=== PATIENT | female | born 1985 | race Caucasian/White ===

== ENCOUNTER 2020-03-14 15:27 | Outpatient (CLI) | payer BC, SELFPAY ==
--- NOTE | ~2020-03-14 | US_ITS ---
EXAMINATION: US transvaginal DATE: 03/14/2020 15:54 INDICATION: Uterine fibroid Comparison:Ultrasound dated 03/11/2015 TECHNIQUE: Multiple transabdominal and endovaginal sonographic images of the pelvis performed. FINDINGS: The uterus measures 9.8 x 5 x 5.7 cm. There is a uterine fibroid at the fundus which is sli ghtly hypoechoic measuring 1.5 x 1.3 x 1.3 cm. The endometrial complex measures 3 mm. The right ovary measures 3.7 x 3.1 x 4.8 cm and the left ovary measures 2.3 x 1.5 x 2.7 cm. There is a 3.2 cm right ovarian cyst There is no free fluid in the pelvis. There are no abnormal masses seen on either side. IMPRESSION: 1. Right ovarian cyst measuring 3.2 cm maximum dimension. 2: Small uterine fibroid at the fundus measuring 1.5 cm. Reviewed, dictated and finalized at location B.
== END 2020-03-14 15:28 ==
PROVIDERS: Visit Provider Nurse Practitioner
DX: N83.201 Unspecified ovarian cyst, right side (principal); D25.9 Leiomyoma of uterus, unspecified
CPT/HCPCS: 76830

== ENCOUNTER 2020-05-08 15:31 | Outpatient (CLI) | payer BC, SELFPAY ==
--- NOTE | ~2020-05-08 | US_ITS ---
EXAMINATION: US transvaginal DATE: 05/08/2020 16:07 INDICATION: Follow-up right ovarian cysts Comparison:Ovarian cysts follow-up TECHNIQUE: Multiple endovaginal sonographic images of the pelvis performed. FINDINGS: The uterus measures 8.6 x 4.7 x 5.3 cm. No discrete fibroids identified. The endometrial co mplex measures 5 mm. The right ovary measures 3.2 x 2.6 x 2.5 cm and the left ovary measures 3.5 x 1.7 x 1.8 cm. There ar e small follicles in each ovary. There is no free fluid in the pelvis. There are no abnormal masses seen on either side. IMPRESSION: 1. Unremarkable pelvic ultrasound. Reviewed, dictated and finalized at location A. [employer]IPMENT MACHINIST
== END 2020-05-08 15:32 ==
PROVIDERS: Visit Provider Obstetrics & Gynecology Gynecology
DX: N83.201 Unspecified ovarian cyst, right side (principal); D25.9 Leiomyoma of uterus, unspecified
CPT/HCPCS: 76830

== ENCOUNTER 2023-01-06 12:00 | Outpatient (CLI) | payer OTHER, SELFPAY ==
--- NOTE | ~2023-01-06 | XR_ITS ---
EXAMINATION: XR chest 2V DATE: 01/06/2023 12:18 INDICATION: Chest pain TECHNIQUE: PA and lateral views of the chest are obtained. COMPARISON: None available FINDINGS: The lungs are free of acute opacities. No pleural effusion or pneumothorax. The cardiomedia stinal silhouette is normal. There is mild thoracic spondylosis. IMPRESSION: 1. No acute cardiopulmonary abnormality. Reviewed, dictated and finalized at location B.
--- NOTE | 2023-01-06 12:21 | ECG_ITS ---
Measurements Intervals [place] Rate: 70 P: -41 AL: 139 QRS: 89 QRSD: 75 T: 19 QT: 396 QTc: 427 Interpretive Statements SINUS RHYTHM RIGHTWARD AXIS BORDERLINE ECG NO PREVIOUS ECG AVAILABLE FOR COMPARISON Electronically Signed On 01-06-2023 17:06:52 CDT by Richard Odell M.D.
[2023-01-06 14:13] LABS: Hematocrit 38.2 % (37.0-47.0); Mean Corpuscular Hemoglobin 30.1 pg (26-34); Mean Corpuscular Volume 88.4 fl (80-100); Platelet Count Result 203 k/mm3 (150-375); Red Blood Count 4.32 M/mm3 (4.2-5.4); Red Cell Distribution Width 11.2 % (11.5-14.5); White Blood Count 4.4 K/mm3 (4.5-10.0)
[2023-01-06 14:19] LABS: Alanine Aminotransferase 22 U/L (6-35); Albumin Level 3.9 g/dL (3.5-5.1); Alkaline Phosphatase 74 U/L (38-126); Anion Gap 5 mmol/L (8-16); Aspartate Amino Transferase 25 U/L (14-36); Bilirubin,Total 0.6 mg/dL (0.2-1.3); Blood Urea Nitrogen 16 mg/dL (7-17); Calcium 8.6 mg/dL (8.4-10.2); Carbon Dioxide 27 mmol/L (22-30); Chloride 104 mmol/L (98-107); Cholesterol 157 mg/dL (0-200); Estimated Glomerular Filt Rate > 60; Glucose 85 mg/dL (65-110); HDL Direct 55 mg/dL; Potassium 3.6 mmol/L (3.4-5.0); Sodium 136 mmol/L (137-145); Triglycerides 85 mg/dL (<150)
[2023-01-06 14:30] LABS: LDL Cholesterol Direct 82 mg/dL
[2023-01-06 15:22] LABS: Free T4 Free Thyroxine 1.29 ng/mL (0.78-2.19)
== END 2023-01-06 12:01 | disposition home or self-care (01) ==
PROVIDERS: PCP Family Medicine; Visit Provider Physician Assistant
DX: R07.9 Chest pain, unspecified (principal); R53.83 Other fatigue; Z13.1 Encounter for screening for diabetes mellitus; Z13.220 Encounter for screening for lipoid disorders
CPT/HCPCS: 36415; 71046; 80053; 80061; 84439; 84443; 85027; 93005

== ENCOUNTER 2023-01-23 10:20 | Emergency (ER) | payer OTHER, SELFPAY ==
[2023-01-23] VITALS (14 sets, daily range): BP systolic 114–174; BP diastolic 70–97; PULSE 71–93; RESP 13–20; TEMP 37.1; O2SAT 100
--- NOTE | ~2023-01-23 | XR_ITS ---
EXAMINATION: XR chest 2V DATE: 01/23/2023 10:53 INDICATION: Left-sided chest pain TECHNIQUE: PA and lateral views of the chest are obtained. COMPARISON: 01/06/2023 FINDINGS: The lungs are free of acute opacities. No pleural effusion or pneumothorax. The cardiomedia stinal silhouette is normal. The visualized bones and soft tissues are unremarkable. IMPRESSION: 1. No acute cardiopulmonary abnormality. Reviewed, dictated and finalized at location L.
--- NOTE | 2023-01-23 10:20 | ECG_ITS ---
Measurements Intervals [place] Rate: 80 P: 19 NV: 92 QRS: 79 QRSD: 71 T: 41 QT: 364 QTc: 420 Interpretive Statements SINUS RHYTHM WITH SHORT NV INTERVAL NORMAL ELECTROCARDIOGRAM COMPARED TO ECG 01/06/2023 12:26:09 NO SIGNIFICANT CHANGES Electronically Signed On 01-23-2023 14:32:30 CDT by Richard Odell M.D.
[2023-01-23 10:35] LABS: Basophils Percent Auto 0.9 % (0.2-1.2); Eosinophils Absolute Auto 0.1 K/mm3 (0-0.3); Eosinophils Percent Auto 1.3 % (0-4.4); Hematocrit 40.8 % (37.0-47.0); Hemoglobin 13.8 g/dL (12.0-15.0); Immature Granulocyte Absolute 0.01 K/mm3 (0.00-0.031); Immature Granulocyte Percent A 0.2 % (0-0.5); Lymphocytes Absolute Auto 1.17 K/mm3 (0.9-3.2); Lymphocytes Percent Auto 26.1 % (18.3-44.2); Mean Corpuscular HGB Conc 33.8 g/dl (32-36); Mean Corpuscular Hemoglobin 30.3 pg (26-34); Mean Corpuscular Volume 89.7 fl (80-100); Mean Platelet Volume 9.7 fl (7.4-10.4); Monocytes Absolute Auto 0.4 K/mm3 (0.1-0.6); Monocytes Percent Auto 9.4 % (2.6-8.5); Neutrophils Absolute Auto 2.8 K/mm3 (1.3-6.7); Neutrophils Percent Auto 62.1 % (45.5-73.1); Platelet Count Result 221 k/mm3 (150-375); Red Blood Count 4.55 M/mm3 (4.2-5.4); Red Cell Distribution Width 11.4 % (11.5-14.5); White Blood Count 4.5 K/mm3 (4.5-10.0)
[2023-01-23 10:46] LABS: Prothrombin Time 13.4 Seconds (11.1-14.7)
[2023-01-23 10:47] LABS: Partial Thromboplastin Time 37.7 SECONDS (22.3-36.8)
[2023-01-23 10:53] LABS: Alanine Aminotransferase 19 U/L (6-35); Albumin Level 4.1 g/dL (3.5-5.1); Alkaline Phosphatase 69 U/L (38-126); Anion Gap 5 mmol/L (8-16); Aspartate Amino Transferase 23 U/L (14-36); Bilirubin,Total 0.8 mg/dL (0.2-1.3); Blood Urea Nitrogen 15 mg/dL (7-17); Calcium 8.8 mg/dL (8.4-10.2); Carbon Dioxide 27 mmol/L (22-30); Chloride 105 mmol/L (98-107); Estimated CRCL calculation 64 ml/min; Estimated Glomerular Filt Rate 56; Glucose 91 mg/dL (65-110); Lipase 94 U/L (23-300); Potassium 3.9 mmol/L (3.4-5.0); Sodium 137 mmol/L (137-145)
[2023-01-23 11:04] LABS: Troponin I < 0.012 ng/mL (0.000-0.034)
[2023-01-23] MEDS: ASPIRIN 81 MG CHEWABLE TABLET 324 MG PO (11:56)
--- NOTE | 2023-01-23 12:11 | ED.GENADULT ---
[facility] - General Adult General Chief complaint: Chest Pain Stated complaint: chest pain Time Seen by Provider: 01/23/23 11:52 Source: patient Mode of arrival: ambulatory Limitations: no limitations History of Present Illness HPI narrative: This is a 37-year-old female who presents to the ED with chief complaint of chest pain ongoing for the past 3 months. It is intermittent. She states she explains that this morning while she was getting ready for work. She reports pain is usually in the central chest and will occasionally radiate down the left arm. She states today it radiated into the back and went down the back. She also reports associated hand and feet paresthesias that are since resolved. Patient states that her chest pain is actually much better compared to earlier this morning. Denies fevers, chills, abdominal pain, nausea, vomiting, LOC, diarrhea, urinary symptoms, cough, leg swelling. She is on daily estrogen containing control. Related Data Home Medications Medication Instructions Recorded Confirmed bupropion HCl 300 mg 24 hr tablet, 300 mg PO QAM 01/06/23 extended release escitalopram oxalate 20 mg tablet 20 mg PO DAILY 01/06/23 levonorgestrel-ethinyl estradiol 1 tablet PO DAILY 01/06/23 0.1 mg-20 mcg tablet (Aviane) Allergies Allergy/AdvReac Type Severity Reaction Status Date / Time FREEZING SPRAY FOR INJURIES Allergy Swelling Uncoded 01/06/23 11:23 SPRAY FOR TAPING BY PERSONAL Allergy Swelling Uncoded 01/06/23 11:23 TRAIN Review of Systems Review of Systems: All systems as dictated in [facility] Past Medical History Medical History (Updated 01/23/23 @ 14:16 by Robbie Mckeon PA-C) Anxiety Family History Family History (Updated 01/06/23 @ 11:17 by Marivel Blas MA) Sibling Breast cancer Social History Social History (Updated 01/06/23 @ 11:21 by Marivel Blas MA) Smoking status: Never smoker Alcohol intake: never Substance use: never Lack of Transportation: No Lack of Food: Never True Current Housing: I Have Housing Concerned About Future Housing: No Difficulty Paying Gas/Electric Bills: No Difficulty Paying for Meds: No Currently Unemployed: No Education: Master's Degree or Higher Difficulty w/ Childcare or Family Care: No Living arrangements: with family Occupation/Education: occupation Spiritual care concerns: No Agree to blood products: Yes Exam Narrative: GENERAL: Well-appearing, well-nourished, and in no acute distress. HEAD: Normocephalic, atraumatic. EYES: PERRLA and EOMI. ENT: Nares clear, no rhinorrhea or epistaxis. Mucous membranes moist. Oropharynx without tonsillar hypertrophy exudate or other lesions. NECK: Supple. No adenopathy or masses. CHEST: No respiratory distress. Clear to auscultation. No wheezes rales or rhonchi HEART: Regular rate and rhythm. No murmur heard. Normal peripheral pulses. ABDOMEN: Soft, nontender, nondistended, normal active bowel sounds. MSK: Normal range of motion. No edema. SKIN: Warm, dry, no rash. NEURO: Alert and oriented x3. No focal deficits. Strength and sensation fully intact in the upper and lower extremities. PSYCH: Normal mood and affect. Course Vital Signs Vital signs: Vital Signs Temperature 98.7 F 01/23/23 10:40 Pulse Rate 80 01/23/23 10:40 Respiratory Rate 20 01/23/23 10:40 Blood Pressure 174/97 H 01/23/23 10:40 Pulse Oximetry 100 01/23/23 10:40 Oxygen Delivery Room Air 01/23/23 10:40 Temperature 98.7 F 01/23/23 10:40 Pulse Rate 83 01/23/23 14:53 Respiratory Rate 13 01/23/23 14:53 Blood Pressure 114/70 01/23/23 14:53 Pulse Oximetry 100 01/23/23 14:53 Oxygen Delivery Room Air 01/23/23 11:52 Medical Decision Making MDM Narrative Medical decision making narrative: This is a 37-year-old female who presents to the ED with chief complaint of intermittent chest pain for the past several months.
[2023-01-23 12:29] LABS: D Dimer < 0.27 ug/mL (<0.48)
[2023-01-23 13:58] LABS: Troponin I < 0.012 ng/mL (0.000-0.034)
== END 2023-01-23 14:54 | disposition home or self-care (01) ==
PROVIDERS: Student in an Organized Health Care Education/Training Program; Emergency Provider Physician Assistant; PCP Family Medicine
DX: R07.89 Other chest pain (principal); F41.9 Anxiety disorder, unspecified
CPT/HCPCS: 36415; 71046; 80053; 83690; 84484; 85025; 85380; 85610; 85730; 93005; 99284; A9270

== ENCOUNTER 2023-01-28 08:56 | Outpatient (CLI) | payer OTHER, SELFPAY ==
--- NOTE | 2023-01-28 09:22 | EST_ITS ---
Patient Info Name: Sherly Land Age: 37 years : 1985 Gender: Female Ht: 69 in Wt: 165 lbs BSA: 1.92 m2 HR: 74 bpm BP: 139 / 82 mmHg Heart Rhythm: Sinus Rhythm Exam Date: 01/28/2023 9:31 AM Exam Location: [facility] Patient Status: Outpatient Admit Date: 01/28/2023 Staff Ordering Physician: Jeana Thomas PA-C Attending Provider: Yue Nicholson MD Exercise Technologist: Yulia Moore, BREE Nurse: Evelyn Jacobson APN Exam Type: CA stress test treadmill Study Info Indications R07.89 - Other chest pain An exercise stress test was performed. Summary 1. Exercise capacity very good at >10 METS. 2[address] No abnormal ST/T wave changes diagnostic of ischemia with exercise. 3. Occasional PACs. Protocol: [facility] ECG Details Stage: REST Duration (min): 12 min : 13 sec Speed (mph): 0.0 Grade (%): 0 HR (bpm): 93 SBP (mmHg): 139 DBP (mmHg): 82 METS: --- Stage: STAGE 1 Duration (min): 1 min : 0 sec Speed (mph): 1.7 Grade (%): 10 HR (bpm): 101 SBP (mmHg): 139 DBP (mmHg): 82 METS: --- Stage: STAGE 1 Duration (min): 2 min : 0 sec Speed (mph): 1.7 Grade (%): 10 HR (bpm): 114 SBP (mmHg): 139 DBP (mmHg): 82 METS: --- Stage: STAGE 1 Duration (min): 3 min : 0 sec Speed (mph): 1.7 Grade (%): 10 HR (bpm): 123 SBP (mmHg): 138 DBP (mmHg): 82 METS: --- Stage: STAGE 2 Duration (min): 1 min : 0 sec Speed (mph): 2.5 Grade (%): 12 HR (bpm): 132 SBP (mmHg): 138 DBP (mmHg): 82 METS: --- Stage: STAGE 2 Duration (min): 2 min : 0 sec Speed (mph): 2.5 Grade (%): 12 HR (bpm): 140 SBP (mmHg): 152 DBP (mmHg): 79 METS: --- Stage: STAGE 2 Duration (min): 3 min : 0 sec Speed (mph): 2.5 Grade (%): 12 HR (bpm): 140 SBP (mmHg): 152 DBP (mmHg): 79 METS: --- Stage: STAGE 3 Duration (min): 1 min : 0 sec Speed (mph): 3.4 Grade (%): 14 HR (bpm): 153 SBP (mmHg): 145 DBP (mmHg): 80 METS: --- Stage: STAGE 3 Duration (min): 2 min : 0 sec Speed (mph): 3.4 Grade (%): 14 HR (bpm): 149 SBP (mmHg): 145 DBP (mmHg): 80 METS: --- Stage: STAGE 3 Duration (min): 3 min : 0 sec Speed (mph): 3.4 Grade (%): 14 HR (bpm): 144 SBP (mmHg): 145 DBP (mmHg): 81 METS: --- Stage: RECOVERY Duration (min): 0 min : 59 sec Speed (mph): 0.0 Grade (%): 0 HR (bpm): 138 SBP (mmHg): 145 DBP (mmHg): 81 METS: --- Stage: RECOVERY Duration (min): 1 min : 59 sec Speed (mph): 0.0 Grade (%): 0 HR (bpm): 107 SBP (mmHg): 145 DBP (mmHg): 81 METS: --- Stage: RECOVERY Duration (min): 2 min : 59 sec Speed (mph): 0.0 Grade (%): 0 HR (bpm): 97 SBP (mmHg): 148 DBP (mmHg): 87 METS: --- Stage: RECOVERY Duration (min): 3 min : 1 sec Speed (mph): 0.0 Grade (%): 0 HR (bpm): 97 SBP (mmHg): 148 DBP (mmHg): 87 M
== END 2023-01-28 08:57 | disposition home or self-care (01) ==
PROVIDERS: PCP Family Medicine; Visit Provider Family Medicine
DX: R07.9 Chest pain, unspecified (principal)
CPT/HCPCS: 93017

== ENCOUNTER 2023-02-27 14:10 | Outpatient (CLI) | payer OTHER, SELFPAY ==
--- NOTE | ~2023-02-27 | CT_ITS ---
EXAMINATION:CT diagnostic chest w con DATE: 02/27/2023 15:28 INDICATION: Other chest pain. TECHNIQUE: Computed tomography (CT) of the chest was performed with 75 mL Omnipaque 350 intravenous c ontrast. Automated exposure control and iterative reconstruction technique were employed. The dose-le ngth product (DLP) was 158.55 mGy-cm. COMPARISON: Chest 2 views 01/23/2023 FINDINGS: There is mild atelectasis in right lower lobe. No pleural effusion. The heart size is jovita l. No pericardial effusion. There is mild thoracic spondylosis. IMPRESSION: 1. No etiology for the patient's symptoms. Reviewed, dictated and finalized at location E.
== END 2023-02-27 14:11 | disposition home or self-care (01) ==
PROVIDERS: PCP Family Medicine; Visit Provider Physician Assistant
DX: R07.89 Other chest pain (principal)
CPT/HCPCS: 71260; Q9967

== ENCOUNTER → 2023-05-16 09:11 | Outpatient (CLI) | payer OTHER, SELFPAY ==
--- NOTE | ~2023-05-16 | MMUS_ITS ---
EXAMINATION: MM diagnostic laxmi BI w hilario, US breast BI complete HISTORY: Breast pain TECHNIQUE: Additional 3-D tomosynthesis images of the breasts were performed and synthetic 2-D images were generated. CAD analysis was submitted and interpreted. High resolution complete bilateral breas t ultrasound was performed. COMPARISON: None BREAST PARENCHYMAL COMPOSITION: The breasts are extremely dense, which lowers the sensitivity of mamm ography FINDINGS: MAMMOGRAPHIC FINDINGS: The breasts are symmetric. No discrete mass, suspicious focal architectural distortion or calcificati ons are identified. ULTRASOUND: Complete bilateral US of all 4 quadrants of the breasts and retroareolar region was reviewed. Normal heterogeneous echotexture without focal solid or cystic mass. IMPRESSION: 1. No evidence for malignancy in either breast. 2. Routine yearly screening mammogram and regular clinical breast examination are recommended. BI-RADS Category 1: Negative Reviewed, dictated and finalized at location A. PROCEDURE IMPRESSION: 1. No evidence for malignancy in either breast. 2. Routine yearly screening mammogram and regular clinical breast examination a re recommended. BI-RADS Category 1: Negative
== END ==
PROVIDERS: PCP Nurse Practitioner; Visit Provider Nurse Practitioner
DX: N64.4 Mastodynia (principal); Z80.3 Family history of malignant neoplasm of breast
CPT/HCPCS: 76641; 77062; 77066; G0279